=== PATIENT | male | born 2000 | race Asian ===

== ENCOUNTER 2022-03-31 05:41 | Emergency (ER) | payer OTHER ==
[~2022-03-31] VITALS: Ht 170.2 cm; Wt 70.5 kg
[2022-03-31 05:42] VITALS: BP 134/76
[2022-03-31] MEDS ORDERED: CefTRIAXone SODIUM 1 GM/VIAL IM ONE (07:15)
[2022-03-31] MEDS ORDERED: LIDOCAINE/PF 1% 2 ML VIAL IM ONE (07:15)
[2022-03-31] MEDS ORDERED: AZITHROMYCIN 500 MG TABLET PO ONE (07:15)
== END 2022-03-31 07:41 | disposition home or self-care (01) ==
LOC: EMS 05:44
DX: N34.2 Other urethritis (principal); Z98.890 Other specified postprocedural states
CPT/HCPCS: 96372; 99283; J0696; J3490; Q9967